=== PATIENT | male | born 1980 | race Caucasian/White ===

== ENCOUNTER 2018-02-09 15:35 | Inpatient (IN) | payer OTHER ==
[~2018-02-09] VITALS: Ht 188 cm; Wt 111.1 kg
[2018-02-12] MEDS ORDERED: CIPRO500 MG PO (12:52)
[2018-02-12] MEDS ORDERED: FLAGYL500MG PO (12:52)
== END 2018-02-12 13:00 | disposition home or self-care (01) | DRG 392 ==
LOC: ER 15:35 → EDSEX 15:49 → ER 15:49 → SURG 02-10 11:55
DX: K57.32 Diverticulitis of large intestine without perforation or abscess without bleeding (principal)

== ENCOUNTER 2018-10-19 10:49 | Inpatient (IN) | payer OTHER ==
[~2018-10-19] VITALS: Ht 188 cm; Wt 106.6 kg
[~2018-10-19 10:49] MED LIST: CIPRO500 MG PO; FLAGYL500MG PO
[2018-11-22] MEDS ORDERED: INTESTINEX680 M1 PO (08:27)
[2018-11-24] MEDS ORDERED: PERCOCET 5-3251 EACH PO (19:44)
[2018-11-24] MEDS ORDERED: OMEPRAZOLE20 MG PO (19:44)
== END 2018-11-24 20:08 | disposition home or self-care (01) | DRG 330 ==
LOC: SURG 11-17 08:15 → SURH 11-22 07:40 → O/R 11-22 07:40 → SURG 11-22 08:15 → SURH 11-23 11:12
PROVIDERS: ADMIT Surgery
PROC: 0DJD8ZZ Inspection of Lower Intestinal Tract, Via Natural or Artificial Opening Endoscopic (ICD-10-PCS; 2018-11-22)
PROC: 0DTN4ZZ Resection of Sigmoid Colon, Percutaneous Endoscopic Approach (ICD-10-PCS; principal; 2018-11-22 07:00)
DX: K57.20 Diverticulitis of large intestine with perforation and abscess without bleeding (principal); N32.1 Vesicointestinal fistula

== ENCOUNTER 2020-04-15 07:24 | Day surgery (SDC) | payer OTHER ==
[~2020-04-15 07:24] MED LIST changes: +INTESTINEX680 M1 PO; +OMEPRAZOLE20 MG PO; +PERCOCET 5-3251 EACH PO
== END 2020-04-15 10:40 | disposition home or self-care (01) ==
LOC: AMB-ENDOS 07:24
PROVIDERS: ATTEND Surgery
DX: K62.89 Other specified diseases of anus and rectum (principal); K64.1 Second degree hemorrhoids; Z20.822 Contact with and (suspected) exposure to COVID-19

== ENCOUNTER 2021-05-02 06:42 | Day surgery (SDC) | payer OTHER ==
[~2021-05-02 06:42] MED LIST changes: +ATORVASTATIN CA10 MG PO; +COZAAR25 MG PO; +HYDRODIURIL12.5 MG PO
[2021-05-02] MEDS ORDERED: COLACE100 MG PO (10:13)
[2021-05-02] MEDS ORDERED: PERCOCET 5-3251 EACH PO (10:13)
== END 2021-05-02 15:10 | disposition home or self-care (01) ==
LOC: CIR.AMB 06:42
PROVIDERS: ATTEND Surgery
DX: K60.3 Anal fistula (principal); K57.30 Diverticulosis of large intestine without perforation or abscess without bleeding; I10 Essential (primary) hypertension; E78.5 Hyperlipidemia, unspecified; F41.9 Anxiety disorder, unspecified; Z20.822 Contact with and (suspected) exposure to COVID-19